=== PATIENT | male | born 1990 | race Two or more races ===

== ENCOUNTER 2020-03-14 21:05 | Emergency (ER) | payer MEDICAID ==
[~2020-03-14] VITALS: Ht 160 cm; Wt 71.2 kg
[2020-03-14 22:30] VITALS: BP 120/70
[2020-03-14] MEDS ORDERED: LIDOCAINE-MPF 2% ,5ML SQ ONE (23:00)
--- NOTE | 2020-03-14 23:09 | NUR ---
PA AT BEDSIDE FOR ASSESSMENT
[2020-03-14] MEDS ORDERED: LIDOCAINE-MPF 2% ,5ML ONE (23:10)
--- NOTE | 2020-03-14 23:31 | NUR ---
Patient/Caregiver given discharge instructions and they have confirmed that they understand the instructions. Patient ambulatory with steady gait.
== END 2020-03-14 23:32 | disposition home or self-care (01) ==
LOC: ED 23:06
DX: N61.1 Abscess of the breast and nipple (principal); L03.313 Cellulitis of chest wall
CPT/HCPCS: 99283